=== PATIENT | female | born 1975 | race African-American/Black ===

== ENCOUNTER 2018-07-20 19:35 | Observation (INO) ==
[2018-07-20] MEDS ORDERED: levETIRAcetam 500 MG/5 ML VIAL IV ONE (21:52)
[2018-07-20 22:14] LABS: Basophils % 0.3 % (0.0-0.8); Eosinophils # 0.2 10*3/uL (0.0-0.87); Eosinophils % 2.9 % (0.00-10.9); Hematocrit 38.7 VOL% (35.7-47.0); Hemoglobin 12.8 GM/DL (12.0-16.0); Immature Granulocytes % 0.3 %; Immature Granulocytes Absolute 0.02 #; Lymphocytes # 3.2 10*3/uL (1.4-4.0); Lymphocytes % 54.4 % (21.3-54.2); Mean Corpuscular HGB Conc 33.1 GM/DL (32-36); Mean Corpuscular Hemoglobin 34 PG (27-34); Mean Corpuscular Volume 101.8 FL (87-102); Mean Platelet Volume 9.8 FL (9.6-12.0); Monocytes # 0.4 10*3/uL (0.11-0.8); Neutrophils # 2.1 10*3/uL (1.4-7.4); Neutrophils % 36.1 % (38.7-73.9); Platelet Count 195 T/CUMM (130-400); Red Cell Distribution Width 12.9 % (9.3-17.3); White Blood Count 5.9 T/CUMM (4-12)
[2018-07-20 22:21] LABS: Apearance,Urine CLOUDY (Clear); Bacteria,Urine Moderate /HPF (Few); Bilirubin,Urine Negative (Negative); Blood, Urine Large mg/dL (Negative); Glucose,Urine (UA) Negative (Negative); Ketones,Urine Negative (Negative); Mucus,Urine Occasional /LPF (Occasional); Nitrite,Urine Negative (Negative); Protein,Urine Negative; RBC,Urine 5 /HPF (0-4); Squamous Epithelial Cell,Urine Occasional /HPF (0-10); Urine Color Yellow (Yellow); Urine Specific Gravity 1.003 (1.001-1.035); Urine Urobilinogen < 2.0 EU/DL (0.2-1.0); WBC,Urine 5 /HPF (0-6)
[2018-07-20] MEDS ORDERED: LEVOFLOXACIN INJ 750 MG in PREMIX 1 EACH IV STA (22:31)
[2018-07-20 22:33] LABS: Barbiturates Screen,Urine Negative (Negative); Benzodiazepines Screen,Urine Positive (Negative); Cannabinoid Screen,Urine Positive (Negative); Opiate Screen,Urine Negative (Negative); Phencyclidine Screen,Urine Negative (Negative)
[2018-07-20 22:35] LABS: Alanine Aminotransferase 25 U/L (13-56); Albumin 3.3 G/DL (3.4-5.0); Alkaline Phosphatase 59 U/L (45-117); Aspartate Amino Transferase 21 U/L (0-37); Blood Urea Nitrogen 6 MG/DL (7-18); Calcium 7.5 MG/DL (8.5-10.1); Glucose 83 MG/DL (74-106); Osmolality,Calculated 282.8 MOS/KG (273-304); Potassium 3.3 MMOL/L (3.5-5.1); Sodium 144 MMOL/L (136-145); Total Protein 6.3 G/DL (6.4-8.3); Troponin I < 0.015 NG/ML (0.00-0.045)
[2018-07-20 22:49] LABS: Eosinophils 4 % (0-10); Lymphocytes 52 % (20-55); Segmented Neutrophils 39 % (50-85); Total Cells Counted 100
[2018-07-20 22:50] LABS: Platelet Estimate Normal; Reactive Lymphocytes Few
[2018-07-21] MEDS ORDERED: LORazepam 2 MG/1 ML VIAL IV PRN (01:13)
[2018-07-21] MEDS ORDERED: NICOTINE 21 MG/24 HR PATCH TRANSDERM PRN (01:13)
[2018-07-21] MEDS ORDERED: ONDANSETRON 4 MG/2 ML VIAL IV PRN (01:13)
[2018-07-21] MEDS ORDERED: diphenhydrAMINE CAP 25 MG CAPSULE PO PRN (01:13)
[2018-07-21] MEDS ORDERED: THIAMINE INJ 100 MG, FOLIC ACID INJ 1 MG, MULTIVITAMIN INJ 10 ML in SODIUM CHLORIDE 0.9... IV ONE (03:30)
[2018-07-21] MEDS: PANTOPRAZOLE 40 MG TABLET PO SCH (08:36)
[2018-07-21] MEDS: PHENYTOIN ER 100 MG CAPSULE PO SCH (08:36)
[2018-07-21] MEDS: POTASSIUM CHLORIDE 20 MEQ TABLET PO PRN ×3 (08:36→15:39)
[2018-07-21] MEDS: cefTRIAXone 1,000 MG in SYRINGE 1 EACH IV SCH (11:32)
[2018-07-21] MEDS: SODIUM CHLORIDE 0.9% 1,000 ML IV SCH ×2 (17:05→17:10)
[2018-07-22] MEDS: SODIUM CHLORIDE 0.9% 1,000 ML IV SCH ×2 (00:11→19:30)
[2018-07-22] MEDS ORDERED: LEVOFLOXACIN INJ 500 MG in PREMIX 1 EACH IV SCH (01:30)
[2018-07-22 05:25] LABS: Calcium 7.9 MG/DL (8.5-10.1); Osmolality,Calculated 279.1 MOS/KG (273-304); Potassium 3.8 MMOL/L (3.5-5.1)
[2018-07-22] MEDS ORDERED: MAGNESIUM SULF RIDER 2 GM in PREMIX 1 EACH IV PRN (05:40)
[2018-07-22] MEDS ORDERED: MAGNESIUM SULF RIDER 4 GM in PREMIX 1 EACH IV PRN (05:40)
[2018-07-22] MEDS: PHENYTOIN ER 100 MG CAPSULE PO SCH (09:09)
[2018-07-22] MEDS: PANTOPRAZOLE 40 MG TABLET PO SCH (09:10)
[2018-07-22] MEDS ORDERED: ACETAMINOPHEN 325 MG TABLET PO PRN (11:37)
[2018-07-22] MEDS: cefTRIAXone 1,000 MG in SYRINGE 1 EACH IV SCH (15:44)
[2018-07-22] MEDS: levETIRAcetam 500 MG TABLET PO SCH (20:33)
[2018-07-23] MEDS: SODIUM CHLORIDE 0.9% 1,000 ML IV SCH (03:44)
[2018-07-23 05:22] LABS: Calcium 7.9 MG/DL (8.5-10.1); Potassium 3.6 MMOL/L (3.5-5.1)
[2018-07-23] MEDS: cefTRIAXone 1,000 MG in SYRINGE 1 EACH IV SCH (08:58)
[2018-07-23] MEDS: PANTOPRAZOLE 40 MG TABLET PO SCH (08:58)
[2018-07-23] MEDS: levETIRAcetam 500 MG TABLET PO SCH (08:58)
[2018-07-23 11:45] VITALS: BP 150/87
== END 2018-07-23 12:33 | disposition home or self-care (01) ==
LOC: EDBD → N.EDINP 19:35 → N.ED 19:35 → SUATTDRO 07-21 01:13 → N.2E 07-21 01:52
PROVIDERS: ADMIT Internal Medicine Cardiovascular Disease; ATTEND Hospitalist

== ENCOUNTER 2020-09-17 23:40 | Observation (INO) ==
[2020-09-18] MEDS ORDERED: LACTATED RINGERS 1,000 ML IV STA (00:18)
[2020-09-18] MEDS ORDERED: LORazepam 2 MG/1 ML VIAL ONE (00:47)
[2020-09-18 01:38] LABS: Alanine Aminotransferase 65 U/L (13-56); Albumin 4.3 G/DL (3.4-5.0); Alkaline Phosphatase 66 U/L (45-117); Aspartate Amino Transferase 75 U/L (0-37); Blood Urea Nitrogen 3 MG/DL (7-18); Calcium 9.6 MG/DL (8.5-10.1); Carbon Dioxide 22 MMOL/L (21-32); Estimated Glom Filtration Rate 90 ML/MIN; Glucose 71 MG/DL (74-106); Sodium 136 MMOL/L (136-145); Total Protein 8.6 G/DL (6.4-8.2)
[2020-09-18 01:44] LABS: Bacteria,Urine Occasional /HPF (Few); Bilirubin,Urine Negative (Negative); Blood, Urine Small mg/dL (Negative); Glucose,Urine (UA) Negative (Negative); Ketones,Urine Negative (Negative); Nitrite,Urine Negative (Negative); Protein,Urine Negative; RBC,Urine <1 /HPF (0-4); Squamous Epithelial Cell,Urine Occasional /HPF (0-10); Urine Appearance Slightly Hazy (Clear); Urine Color Straw (Yellow); Urine Specific Gravity 1.001 (1.001-1.035); Urine Urobilinogen < 2.0 EU/DL (0.2-1.0)
[2020-09-18 01:56] LABS: Basophils % 0.6 % (0.0-0.8); Eosinophils % 0.8 % (0.00-10.9); Hematocrit 45.8 VOL% (35.7-47.0); Hemoglobin 15.6 GM/DL (12.0-16.0); Immature Granulocytes % 0.8 %; Immature Granulocytes Absolute 0.04 #; Lymphocytes # 1.8 10*3/uL (1.4-4.0); Lymphocytes % 35.3 % (21.3-54.2); Mean Corpuscular HGB Conc 34.1 GM/DL (32-36); Mean Corpuscular Volume 104.6 FL (87-102); Mean Platelet Volume 11.2 FL (9.6-12.0); Monocytes % 6.8 % (1.7-12.7); Neutrophils % 55.7 % (38.7-73.9); Platelet Count 161 T/CUMM (130-400); Red Blood Count 4.38 MC/CUMM (3.8-5.5); Red Cell Distribution Width 13.8 % (9.3-17.3)
[2020-09-18 01:59] LABS: Barbiturates Screen,Urine Negative (Negative); Benzodiazepines Screen,Urine Positive (Negative); Cannabinoid Screen,Urine Positive (Negative); Opiate Screen,Urine Negative (Negative); Phencyclidine Screen,Urine Negative (Negative)
[2020-09-18] MEDS ORDERED: SODIUM CHLORIDE 0.9% 1,000 ML IV STA (02:30)
[2020-09-18 02:33] LABS: PT Patient Result 10.7 SECS (10.5-12.0); Partial Thromboplastin Time 22.8 SECS (23.9-33.8)
[2020-09-18] MEDS ORDERED: ONDANSETRON 4 MG/2 ML VIAL IV PRN (04:35)
[2020-09-18] MEDS ORDERED: GLUCAGON 1 MG VIAL IM PRN (04:35)
[2020-09-18] MEDS ORDERED: ACETAMINOPHEN 325 MG TABLET PO PRN (04:35)
[2020-09-18] MEDS ORDERED: DEXTROSE 50% 25 GM/50 ML VIAL IV PRN (04:35)
[2020-09-18] MEDS ORDERED: SODIUM CHLORIDE 0.9% 1,000 ML IV SCH (05:00)
[2020-09-18 07:56] LABS: Basophils % 0.7 % (0.0-0.8); Eosinophils # 0.1 10*3/uL (0.0-0.87); Eosinophils % 1.6 % (0.00-10.9); Hematocrit 35.8 VOL% (35.7-47.0); Immature Granulocytes % 0.4 %; Immature Granulocytes Absolute 0.02 #; Lymphocytes # 1.7 10*3/uL (1.4-4.0); Lymphocytes % 30.1 % (21.3-54.2); Mean Corpuscular HGB Conc 34.9 GM/DL (32-36); Mean Corpuscular Volume 102.6 FL (87-102); Mean Platelet Volume 10.3 FL (9.6-12.0); Monocytes % 8.9 % (1.7-12.7); Neutrophils % 58.3 % (38.7-73.9); Platelet Count 173 T/CUMM (130-400); Red Cell Distribution Width 13.9 % (9.3-17.3); White Blood Count 5.6 T/CUMM (4-12)
[2020-09-18 07:57] LABS: Hemoglobin 12.5 GM/DL (12.0-16.0); Red Blood Count 3.49 MC/CUMM (3.8-5.5)
[2020-09-18 08:23] LABS: Albumin 3.1 G/DL (3.4-5.0); Bilirubin,Total 0.5 MG/DL (0.2-1.0); Calcium 8.1 MG/DL (8.5-10.1); Osmolality,Calculated 277.1 MOS/KG (273-304); Potassium 4.3 MMOL/L (3.5-5.1); Total Protein 6.1 G/DL (6.4-8.2)
[2020-09-18] MEDS: levETIRAcetam 500 MG TABLET PO SCH ×2 (08:48→20:06)
[2020-09-18] MEDS: PHENYTOIN ER 100 MG CAPSULE PO SCH (08:49)
[2020-09-18] MEDS ORDERED: PANTOPRAZOLE 40 MG TABLET PO SCH (09:00)
[2020-09-18] MEDS ORDERED: SODIUM CHLORIDE 0.9% 1,000 ML IV ONE (09:22)
[2020-09-18] MEDS ORDERED: DEXTROSE 5% NACL 0.9% 1,000 ML IV SCH (09:30)
[2020-09-18] MEDS ORDERED: LORazepam 2 MG/1 ML VIAL IV PRN (10:57)
[2020-09-19 08:16] LABS: Basophils % 0.5 % (0.0-0.8); Hematocrit 33.7 VOL% (35.7-47.0); Hemoglobin 11.2 GM/DL (12.0-16.0); Immature Granulocytes % 0.2 %; Immature Granulocytes Absolute 0.01 #; Lymphocytes # 1.3 10*3/uL (1.4-4.0); Lymphocytes % 31.6 % (21.3-54.2); Mean Corpuscular HGB Conc 33.2 GM/DL (32-36); Mean Corpuscular Volume 105.3 FL (87-102); Mean Platelet Volume 10.7 FL (9.6-12.0); Neutrophils % 56.7 % (38.7-73.9); Platelet Count 151 T/CUMM (130-400); Red Cell Distribution Width 13.9 % (9.3-17.3); White Blood Count 4.2 T/CUMM (4-12)
[2020-09-19 08:41] LABS: Calcium 7.4 MG/DL (8.5-10.1); Osmolality,Calculated 281.1 MOS/KG (273-304); Potassium 3.5 MMOL/L (3.5-5.1)
[2020-09-19] MEDS: levETIRAcetam 500 MG TABLET PO SCH ×2 (08:52→20:37)
[2020-09-19] MEDS: PHENYTOIN ER 100 MG CAPSULE PO SCH (08:52)
[2020-09-19] MEDS ORDERED: PANTOPRAZOLE 40 MG VIAL IV SCH (09:00)
[2020-09-19] MEDS: POLYETHYLENE GLYCOL POWDER 17 GM PACK PO SCH ×2 (12:15→20:37)
[2020-09-20 06:51] LABS: Basophils % 0.5 % (0.0-0.8); Eosinophils # 0.1 10*3/uL (0.0-0.87); Eosinophils % 1.9 % (0.00-10.9); Hematocrit 33.4 VOL% (35.7-47.0); Hemoglobin 11.3 GM/DL (12.0-16.0); Immature Granulocytes % 0.3 %; Immature Granulocytes Absolute 0.01 #; Lymphocytes # 1.9 10*3/uL (1.4-4.0); Lymphocytes % 49.1 % (21.3-54.2); Mean Corpuscular HGB Conc 33.8 GM/DL (32-36); Mean Platelet Volume 10.9 FL (9.6-12.0); Monocytes % 11.4 % (1.7-12.7); Neutrophils % 36.8 % (38.7-73.9); Platelet Count 146 T/CUMM (130-400); Red Blood Count 3.18 MC/CUMM (3.8-5.5); Red Cell Distribution Width 13.6 % (9.3-17.3); White Blood Count 3.8 T/CUMM (4-12)
[2020-09-20 07:29] LABS: Calcium 8.7 MG/DL (8.5-10.1); Osmolality,Calculated 277.1 MOS/KG (273-304); Potassium 3.5 MMOL/L (3.5-5.1)
[2020-09-20 07:33] LABS: Eosinophils 1 % (0-10); Hypochromasia 1+; Lymphocytes 45 % (20-55); Microcytosis 1+; Platelet Estimate Adequate; Segmented Neutrophils 44 % (50-85); Total Cells Counted 100
[2020-09-20] MEDS: POLYETHYLENE GLYCOL POWDER 17 GM PACK PO SCH (08:09)
[2020-09-20] MEDS: PHENYTOIN ER 100 MG CAPSULE PO SCH (08:09)
[2020-09-20] MEDS: levETIRAcetam 500 MG TABLET PO SCH (08:09)
[2020-09-20] MEDS ORDERED: PANTOPRAZOLE 40 MG TABLET PO SCH (09:00)
[2020-09-20 11:27] VITALS: BP 137/92
== END 2020-09-20 12:45 | disposition home or self-care (01) ==
LOC: EDBD → EDUNIT# → N.ED 23:40 → N.EDINP 23:40 → SUATTDRO 09-18 04:35 → N.3E 09-18 05:44
PROVIDERS: ADMIT Internal Medicine; ATTEND Emergency Medicine